=== PATIENT | female | born 1955 | race African-American/Black ===

== ENCOUNTER 2020-10-22 23:47 | Emergency (ER) | payer BC, OTHER ==
[~2020-10-22] VITALS: Ht 170.2 cm; Wt 83.0 kg
[2020-10-23] MEDS ORDERED: LISINOPRIL-HCT1 EAC1 PO ×2 (00:42→01:57)
[2020-10-23] MEDS ORDERED: NORVASC5 M1 PO ×2 (00:42→01:57)
[2020-10-23 01:04] LABS: CALCIUM 10.1 mg/dL (8.5-10.1); CREATININE 0.9 mg/dL (0.6-1.0); POTASSIUM 3.5 mmol/L (3.5-5.1)
[2020-10-23 02:09] VITALS: BP 156/97
== END 2020-10-23 02:10 | disposition home or self-care (01) ==
LOC: ER 23:47
PROVIDERS: Emergency Medicine
DX: I10 Essential (primary) hypertension (principal); Z79.899 Other long term (current) drug therapy